=== PATIENT | female | born 1945 | race Caucasian/White ===

== ENCOUNTER 2024-08-31 07:46 | Day surgery (SDC) | payer OTHER, SELFPAY ==
[2024-08-31] VITALS (18 sets, daily range): BP systolic 120–158; BP diastolic 69–95; BMI 21.7
[2024-08-31] MEDS: NSS 186 ML IV (08:43)
--- NOTE | 2024-08-31 10:21 | ITS.CL.CATH ---
Vice President And Portfolio Manager - Catheterization
Cardiac Catheterization
Procedure Report:
CARDIAC CATHETERIZATION REPORT
Date of Procedure: 08/31/2024
Referring: Matthias Walker M.D.
Indication: Severe aortic valve stenosis, NYHA class II.
PROCEDURE:
1. Right heart catheterization.
2. Coronary angiography.
A total of 8 minutes of procedural/moderate sedation was utilized. An independent certified medical biller was present to assist with and help manage the patient's level of consciousness and physiologic status.
ACCESS:
1. 6 Hong Konger right radial artery delete using a modified Seldinger technique.
2. 5 Hong Konger right antecubital vein using a previously placed IV.
CATHETERS:
1. 5 [place]er balloon with.
2. 5 [place]er JR4.
3. 5 [place] Konger JL 3.5.
HEMODYNAMIC DATA
Weight (kg): 61.7
AO (s/d/x, mmHg): 120/80/93
LV (s/x, mmHg): Not obtained.
PCWP (a/v/x, mmHg): 01/08/
PA (s/d/x, mmHg): 17/02/
RV (s/x, mmHg): 20/6
RA (a/v/x, mmHg): 8//
SVC SvO2 (%): 69.8
IVC SvO2 (%): Not obtained.
RA SvO2 (%): Not obtained.
RV SvO2 (%): Not obtained.
PA SvO2 (%): 69.9
SaO2 (%): 95.0
Hbg (g/dL): 12.3
DEYA
CO (L/min): 3.55
CI (L/min/m2): 2.09
Thermodilution
CO (L/min): Not performed.
CI (L/min/m2): Not performed.
TPG (mmHg): 4
PVR (Zavala Units): 1.13
SVR (dynes*seconds*cm^-5): 1960
AVO2 Diff (Volume %): 4.20
AV gradient (x, mmHg): Not obtained.
AV area (cm2): Not obtained.
MV gradient (x, mmHg): Not obtained.
MV area (cm2): Not obtained.
LEFT VENTRICULOGRAPHY: Not performed.
AORTOGRAPHY: Not performed.
CORONARY ANGIOGRAPHY
Dominance: Right.
Left Main: Normal size, bifurcating vessel. There is no coronary artery disease.
LAD: Normal size vessel giving rise to 2 diagonals. The first diagonal is a small, 1.5 mm vessel. The second diagonal is a large vessel supplying the majority of the distal anterolateral wall. There are minor luminal irregularities in the mid
LAD immediately after the origin of D2.
Ramus: Congenitally absent.
Circumflex: Normal size, nondominant vessel that is essentially a single obtuse marginal supplying the lateral/anterolateral wall. There are minor luminal irregularities.
RCA: Large size, dominant vessel with a large posterolateral arcade that supplies the entire inferior inferior lateral and much of the lateral wall. There are minor luminal irregularities.
INTERVENTIONS
None.
Closure Device: Vascular band for the right radial artery, manual pressure for the right antecubital vein.
Radiation dose (mGy): 200
DAP (cm2.Gy): 10.1
Fluoroscopy time (minutes): 2.6
CONCLUSIONS:
1. Right dominant circulation with no occlusive coronary artery disease.
2. Normal filling pressures (PCWP = 9 mmHg at 61.7 kg).
3. Severe aortic valve stenosis by echocardiography.
RECOMMENDATIONS:
1. Expectant management after cardiac catheterization via right radial/antecubital approach.
2. Limited weight bearing on the right wrist for one week.
3. Continue AVR workup. CTA ordered and pending.
4. Filling pressures are normal. No role for aggressive diuresis.
5. Continue aggressive primary prevention with statin. The presence of luminal irregularities does imply atherosclerosis. Goal LDL <55.
Copy to: Matthias Walker M.D., Felipe Goldberg D.O.
Doug Bach DO, FACC, FACP
[2024-08-31] MEDS: TYLENOL 650 MG PO (10:51)
== END 2024-08-31 13:50 | disposition home or self-care (01) ==
LOC: CATH 07:46
PROVIDERS: ATTENDING PHYSICIAN Internal Medicine Cardiovascular Disease; FAMILY PHYSICIAN Family Medicine; OTHER PHYSICIAN Internal Medicine Interventional Cardiology
DX: I35.0 Nonrheumatic aortic (valve) stenosis (principal); E78.5 Hyperlipidemia, unspecified; Z79.82 Long term (current) use of aspirin; E03.9 Hypothyroidism, unspecified
CPT/HCPCS: 93456; C1894; Q9967

== ENCOUNTER → 2024-09-10 09:34 | Outpatient (REF) | payer OTHER, SELFPAY | LOC: RAD 09:34 | PROVIDERS: ATTENDING PHYSICIAN Nurse Practitioner Acute Care; FAMILY PHYSICIAN Family Medicine | DX: I35.0 Nonrheumatic aortic (valve) stenosis (principal) | CPT/HCPCS: 74174; 75572; Q9967 ==

== ENCOUNTER 2024-10-29 05:28 | Inpatient (IN) | payer OTHER, SELFPAY ==
--- NOTE | 2024-10-20 16:14 | HPS.HSE ---
Family Physician
-
Family Physician: Felipe Goldberg
Chief Complaint
-
Fatigue
PreTAVR evaluation
History of Present Illness
Ms. Hardy is a very pleasant 78 yof with a past medical history significant for , HT, HLD, and renal carcer, Echocardiogram from02/12/2024 is notable for EF 65%, AV MG 50, CHEPE 0.65, pk kori. 4.35, mild MAC, mild MR, mild-moderate TR, PAP 26. Cardiac
catheterization from 08/31/2024 demonstrated no occlusive disease. From a symptomatology standpoint, patient states she has mild fatigue and denies SOB. Discussed the pathophysiology and treatment options of including SAVR and TAVR. Reviewed the
need for dental clearance and prophylactic antibiotic before any dental procedure after AVR. Patient was reviewed with the heart team on 09/18/2024 and the agreed to proceed with TAVR utilizing a 26mm S3 via right transfemoral access.
Assessed patient in preadmission testing and confirmed medication list., Ms. Hardy will continue aspirin including the morning of her TAVR. She will arrive to the [facility] at 0530. Reviewed the risk of the procedure as discussed in consult with
Dr. Gregory including PPM, stroke, and vascular injury. Allowed for and answered questions to the best of my ability.
Medical History
Past Medical History
Past Medical History: Reports Cancer (bladder, thyroid, breast), Hypothyroidism, Valvular Disease (aortic stenosis) and Other (Retinal tear, hyperlipidemia, migraine, single kidney, brain bleed, neuropathy)
Past Surgical History: Reports Appendectomy, Cholecystectomy, Gynocological (hysterectomy, lumpectomy), Orthopedic ((R) hip replacement) and Other (nephrectomy, Surgery for brain bleed)
Social History
Tobacco: Former Smoker
Alcohol: Occasional
Drug: None
Personal:
Living: With Family
Employment: Retired
Family History
Family History: Cancer and Hypertension
Allergies / Home Medications
Allergies reflects when Allergies were last updated in [employer].
Oxycodone, sulfa
Home Medications with original date entered in [employer]
ALPRAZolam 0.25 MG Tablet 1 tablet Orally as needed at bedtime
amLODIPine Besylate 2.5 MG Tablet TAKE 1 TABLET (5 MG TOTAL) BY MOUTH DAILY.
Anastrozole 1 MG Tablet 1 tablet Orally Once a day
Aspirin 81(Aspirin) 81 MG Tablet Delayed Release 1 tablet Orally Once a day
Atorvastatin Calcium 20 MG Tablet 1 tablet Oral 3 times a week
Calcium 600 MG Tablet 1 tablet with meals Orally Twice a day
Gabapentin 300 MG Capsule 1 capsule Orally Once a day
Levoxyl(Levothyroxine Sodium) 75 MCG Tablet TAKE 1 TABLET BY MOUTH EVERY MORNING ON AN EMPTY STOMAH Oral
Ondansetron HCl 4 MG Tablet 1 tablet Orally Once a day
Allergy/Medication List:
Oxycodone, sulfa
Review of Systems
-
A 12 point ROS was completed and negative except as noted: Yes
Constitutional: Reports Fatigue
Respiratory: Reports Other (CHOWDHURY)
Physical Exam
Physical Exam
General: Well Developed, Well Nourished and No Apparent Distress
HEENT: NormoCephalic
Respiratory: Clear
Cardiac: Murmur (III/ KAMRAN)
Breast: Deferred by me
GI: Soft, Non Tender and Non Distended
Rectal: Deferred by Provider
Genito-urinary: Deferred by me
Skin: Warm
Neuro: Awake, Alert and Oriented
Psych: Calm
Data Reviewed
-
CT Scan: Report Reviewed by me and Discussed with Physician (reviewed CT scan with the TAVR team)
Medical Tests (Nuc Med, Echo, EKG etc): Report Reviewed by me and Discussed with Physician (reviewed echocardiogram and cardiac catheterization with the heart team)
Lab Data: Labs Reviewed by me
Old Records: Reviewed
Impression/Plan
-
IMPRESSION/PLAN:
Aortic stenosis--TF TAVR utilizing a 26 mm S3 via right transfemoral access planned for 10/29/2024 with Gerardo Bach and Bri
Continue Aspirin
POD#1/#30 echocardiogram
Cardiac rehab consult.
Labs
-
Labs:
WBC 5.0 10^3/uL (4.8-10.8) 10/21/24 12:08
RBC 3.94 10^6/uL (4.20-5.40) L 10/21/24 12:08
Hgb 12.3 g/dL (12.0-16.0) 10/21/24 12:08
Hct 36.3 % (37.0-47.0) L 10/21/24 12:08
Plt Count 198 10^3/uL (130-400) 10/21/24 12:08
Sodium 135 mmol/L (135-145) 10/21/24 12:08
Potassium 4.3 mmol/L (3.5-5.1) 10/21/24 12:08
Chloride 102 mmol/L (98-107) 10/21/24 12:08
Carbon Dioxide 29 mmol/L (22-30) 10/21/24 12:08
BUN 15 mg/dl (7-17) 10/21/24 12:08
Creatinine 1.1 mg/dL (0.6-1.0) H 10/21/24 12:08
eGFR 51.43 10/21/24 12:08
Glucose 92 mg/dl (70-99) 10/21/24 12:08
Calcium 10.1 mg/dl (8.4-10.2) 10/21/24 12:08
Dfy-C-Iragjqywiig Pept 508 pg/ml 10/21/24 12:08
Albumin 4.4 g/dl (3.5-5.0) 10/21/24 12:08
[2024-10-21 12:16] VITALS: BMI 22.1
[2024-10-21 12:27] LABS: Hematocrit 36.3 % (37.0-47.0); Hemoglobin 12.3 g/dL (12.0-16.0); Mean Corp Hgb Conc. 33.9 g/dL (33.0-37.0); Mean Corpuscular Volume 92.1 fL (81.0-99.0); Nucleated Red Blood Cells % 0 %; Platelet Count 198 10^3/uL (130-400); Red Cell Dist. Width 14.1 % (11.5-14.5)
[2024-10-21 12:39] LABS: INR 0.94; PT 13.1 Sec (11.4-14.6)
[2024-10-21 13:04] LABS: ALT (SGPT) 12 U/L (0-35); AST (SGOT) 20 U/L (14-36); Albumin 4.4 g/dl (3.5-5.0); Alkaline Phosphatase 60 U/L (38-126); Blood Urea Nitrogen 15 mg/dl (7-17); Calcium 10.1 mg/dl (8.4-10.2); Carbon Dioxide 29 mmol/L (22-30); Chloride 102 mmol/L (98-107); Estimated Creatinine Clearance 42 ml/min; Glucose 92 mg/dl (70-99); Potassium 4.3 mmol/L (3.5-5.1); Sodium 135 mmol/L (135-145); Total Protein 6.8 g/dl (6.3-8.2); eGFR 51.43
--- NOTE | 2024-10-21 13:49 | CM ---
CM following for DC planning needs.
Met w/ patient during PATs for planned TAVR, 10/29.
Pt. reports that she resides in a private, 2 STH w/ spouse. They have 1st floor set up.
Pt. is functionally indep. at baseline w/ ADLs, mobility without the use of any assisted device.
Pt. has RX plan and uses [facility] on [address] [facility] in [place] for prescription needs.
Reviewed pre and post op routines.
Soap, shower instructions and TAVR booklet provided.
Discussed post op MD appointments, Cardiac Rehab and visit from CT Transitional Care RN.
Reviewed post op restrictions to include lifting, driving restrictions.
Plan is for TAVR, 10/29.
Antic. DC plan is for home w/ CT Transitional Care RN. CM to follow.
[2024-10-21 14:15] LABS: Glycohemoglobin (HgbA1c) 4.9 % (4.0-5.6)
[2024-10-29] VITALS (18 sets, daily range): BP systolic 125–190; BP diastolic 65–116; BMI 21.3
--- NOTE | 2024-10-29 06:23 | PTCARENOTE ---
Pt arrived for TAVR @ 05:15. AAOx3. Vital signs captured. Height and weight recorded. Cardiac strip recorded. Groins clipped. CHG wipes completed. Pt verified showering with CHG soap x2. IV placed in right AC. Type and screen completed. Med req
completed and updated. Assessment completed. Pt verifies taking 81mg Aspirin @ home. Discussed plan of care with pt. Call garsia within reach.
Antibiotic pulled to go with pt. CVOR SBAR/Handoff completed.
--- NOTE | 2024-10-29 06:27 | W.CVOR.SURPR ---
CVOR Surgeon Immed Pre Op
-
I have examined this patient prior to performance of the scheduled procedure.
The patient's condition is unchanged from the time of the dictated/written History and
Physical and the patient is able to undergo the scheduled procedure.
TF TAVR
Full Rescue
[2024-10-29] MEDS: ANCEF 10 IV (07:29)
[2024-10-29 08:23] LABS: ACT-LR - POC 294 Seconds (116-155)
--- NOTE | 2024-10-29 08:31 | ITS.CL.TAVR ---
Clay Modeler - TAVR Report
TAVR PRocedure
Procedure Report:
TRANSCATHETER AORTIC VALVE REPLACEMENT REPORT
Date: 10/29/2024
Referring physician: Matthias Walker M.D.
Preop diagnosis: Severe aortic valve stenosis.
Postop diagnosis: Severe aortic valve stenosis.
Procedure: Transcatheter aortic valve replacement (TAVR) using a #26 Kay MELISSA S3 Ultra Resilia THV.
Operators: Doug Bach DO, Reece Gregory M.D.
Findings: Severely calcified and stenotic aortic valve.
Anesthesia: Conscious sedation was provided by the anesthesia staff.
Estimated blood loss: Negligible.
Complications: None.
Condition: Stable
Procedure:
The patient was brought to the cardiac laborer drying department after consent and was prepped and draped in standard sterile fashion. Conscious sedation was provided by the anesthesia staff. After a 'Time Out,' bilateral common femoral arteries and the left
common vein were access using a modified Seldinger technique with a micropuncture kit under ultrasound guidance. A 6 Ghanaian sheath was placed in the left femoral vein. Angiography performed through the micropuncture sheath confirmed satisfactory
arterial placement in the left common femoral artery. The micropuncture sheath was replaced with a 6Fr sheath in the left DRUM PLATER. Angiography through the micropuncture kit confirmed satisfactory arterial placement in the right common femoral artery.
The right DRUM PLATER was dilated with an 8FR dilator and preclosed with two Perc-Close devices. An 8Fr sheath was placed in the RCFA. A temporary pacing wire was advanced through the left femoral vein and into the right ventricle. The pacemaker
demonstrated good capture and was set to back up. A 5Fr pigtail catheter was advanced through the left femoral sheath and seated in the right coronary cusp. Angiography confirmed co-planar angles.
An AL-1 catheter was advanced through the 8Fr sheath, the J wire was exchanged for an Amplatz Extra-Stiff wire and the catheter and the 8 Fr sheath was removed. The 14 Fr Kay E-Sheath was inserted over the wire and into the descending aorta.
Heparin 5000 units was given. The MELISSA S3 was prepared on the back table. Orientation was confirmed by both physicians. The AL-1 catheter was re-advanced through the E-sheath to the level of the ascending aorta. The Extra-Stiff wire was
removed and a soft tip straight wire was advanced through the AL-1. The straight tip wire was used to cross the aortic valve and the catheter was advanced into the left ventricle. The straight wire was removed. Left ventricular pressure was
measured. An Amplatz Extra-Stiff wire with curved proximal end was advanced through the catheter and into the left ventricular apex. The catheter was removed. ACT was checked and confirmed to be > 250 seconds.
The valve was advanced over the Extrastiff wire and into the descending aorta. The balloon was pulled back and the valve was mounted on the balloon. The valve was advanced through the aortic arch and into the aortic valve annulus. The pusher
device was withdrawn to allow for balloon expansion. Low volume aortography confirmed good position of the valve. The valve was deployed during rapid ventricular pacing. Echocardiography and aortography confirmed a good result with trace/mild
aortic valve insufficiency and a 7 mmHg mean gradient. The valve deployment system was removed. The Kay E-Sheath was then removed and hemostasis obtained with the two Perc-Close sutures. Final angiography demonstrated no evidence of ileofemoral
dissection/perforation and good runoff below the common femoral artery. The pacemaker and the pigtail catheter were removed. The left femoral artery sheath was removed using a 6 [place]ian Angio-Seal. The left femoral venous sheath was removed and
manual pressure was applied with excellent hemostasis. Protamine 30 mg was administered.
Radiation
Dose (mGy): 167
DAP (cm2.Gy): 15.2
Fluoroscopy time (minutes): 10.2
TAVR Echo Gradient (mmHg): 7
LV (s/x, mmHg): 164/15
TAVR Cath Gradient (mmHg): Not obtained.
Conclusions:
1. Successful placement of # #26 Melissa S3 Ultra aortic valve via right transfemoral approach with no acute complications.
2. Mildly elevated filling pressures (LVEDP = 15 at 64.8 kg).
Doug Bach, DO, FACC, FACP
Copy to: Matthias Walker M.D., Felipe Goldberg D.O.
--- NOTE | 2024-10-29 08:31 | W.PN.CT.SURG ---
CT Surgery Operative Note
-
OPERATIVE REPORT
Preoperative Diagnosis: Severe aortic valve stenosis, symptomatic
Postoperative Diagnosis: Same
Procedure(s) Performed: Right trans femoral TAVR with a 26mm + 1cc Olivas TAVR valve
Date of Procedure: 10/29/24
Comorbidities:
1. Severe aortic stenosis, symptomatic
2. Retinal Tear
3. Bladder CA
4. HTN
5. HLD
6. Breast Cancer
7. Neuropathy
Cardiac Surgeon: Reece Gregory MD, MS
Cable Testers Helper: Doug Bach MD
Anesthesia: Conscious Sedation and Local Analgesia
EBL: 100cc
Products: none
Implant: 26mm + 1cc OLIVAS Melissa Resilia TAVR Valve, SN: [id number]
Indication(s) for Procedures: 78-year-old female with symptomatic severe aortic stenosis. CT-TAVR protocol revealed acceptable anatomy for TAVR access and implantation.
Start time: 0746hrs
Deployment time: 0813hrs
End time: 0824hrs
Radiation Dose (mGy): 167
DAP (cm2.Gy): 15.2
Fluoroscopy time (minutes): 10.2
Contrast volume (ml): 92
TAVR gradient (mmHg): 7mmHg
Heparin Dose: units
Protamine Dose: 30mg
Final Valve Positionin/20
Findings: Preoperative LVEF was 60% and was 60% following TAVR without inotropic support. Function was overall normal without regional wall motion abnormalities or dyskinesia. The aortic valve was well seated with only trace detectable PVL and mean
gradient across the new valve was 7 mmHg. after deployment, there is no further requirement of pacing and returned to sinus while on the oven laborer table. There was successful placement of 26 mm +1 cc TAVR valve without acute complications.
Access:
1. Device -right common femoral artery, perclose x 2
2. Pigtail -left common femoral artery [+ 6Fr angioseal]
3. Transvenous Pacer -left common femoral vein
Description of Procedure: The patient was taken to the oven laborer. Their identity and procedure to be performed were verified and they were positioned supine on the oven laborer table. Induction via conscious sedation. The patient was then prepped and
draped from chin to thigh in a sterile fashion. A preoperative time-out was performed with all members of the team present. Arterial and venous access was performed using fluoroscopy and ultrasound guidance with micropuncture and Seldinger
technique. Two perclose devices were used on the device side followed by access to the aorta with a stiff wire to facilitate E-sheath placement. Heparin was given. A stiff straight wire and AL-1 catheter was used to cross the aortic valve. The stiff
wire was exchanged for an extra stiff coiled tip wire. The valve was prepped and mounted on to the device carrier. An ACT of >250 was achieved. We verified x 3 that the valve was mounted in the correct orientation with the skirt of the valve
directed toward the tip of the device carrier. We advanced the device into the descending thoracic aorta where the valve was them mounted onto the balloon under fluoroscopy. The device was flexed and advanced over the arch into the root and
positioned across the aortic valve. Contrast fluoroscopy was used to visualize the prosthesis across the valve and to guide positioning. A pigtail catheter in the RCC as used as a guide. We aimed to have the bottom of the device marker at the
annular hinge point. The device sheath was pulled back. We performed a quick pre-deployment time out. The pacer was turned on and had capture. Blood pressure fell accordingly, angiography was done to verify the intended final placement and the valve
was deployed with 5 seconds of rapid pacing to nominal volume. The balloon was deflated and the pacer was turned off. We had recovery of vitals. The device carrier was unflexed and positioned back in the descending thoracic aorta. A transthoracic
echocardiogram was performed. The device was removed from the E-Sheath maintaining wire access followed by removal of the E-sheath as we cinched down the perclose devices. There was acceptable hemostasis. The pigtail was withdrawn into the
descending/abdominal and completion aortogram with runoff run-off angiography was performed. There was no stenosis or dissection of bilateral iliofemoral systems. There was acceptable hemostasis of bilateral groins and manual pressure was held
following wire removal. Low dose protamine was administered after checking another ACT.
All instrument, sponge, and needle counts were confirmed to be correct x 2 at the end of the operation. The patient was transferred to the cardiac intensive care unit in stable condition.
I, Dr. Reece Gregory, was present, scrubbed for, and performed all critical elements of this procedure.
Reece Gregory MD
Cardiothoracic Surgeon
[facility]
This operative dictation was created using the [employer] dictation system. Please excuse any grammatical, typographical, or 'sound alike' errors
[2024-10-29] MEDS: OFIRMEV 100 IV (09:31)
[2024-10-29] MEDS: ANCEF IV (10:32)
[2024-10-29] MEDS: SYNTHROID PO (10:33)
--- NOTE | 2024-10-29 10:54 | CM ---
Chart reviewed. Patient is in the OR today. Patient is independent of ADLS, lives with her in a 2 STH, 1st floor set up, 0 DME. Plan is for the patient to return home with CT Transitional RN. CM to follow
--- NOTE | 2024-10-29 12:18 | PTCARENOTE ---
Pt received from recovery area post TAVR. Telemetry shows sinus wei at a rate of 42-50's. Bilateral femoral groin sites with dry and intact dressings, no sign of bleeding or hematoma. Pt denies any discomfort but does report intermittent 'auras'
treated in recovery area with offirmev. Pt is in a darkened room , as quiet as possible, STEFAN Galdamez aware. Other neuro assessment is at pt's baseline.
[2024-10-29] MEDS: ARIMIDEX PO (15:41)
[2024-10-29] MEDS: ANCEF 5 IV (15:41)
[2024-10-29] MEDS: VITAMIN D3 (cholecalciferol) PO (15:41)
--- NOTE | 2024-10-29 16:19 | W.DCSUMMARY ---
Discharge Summary
Discharge Data
Date of Admission: 10/29/24
Date of Discharge: 10/30/24
-
Pending Results: No
Hospital Course
Primary care physician: Dr. Felipe Goldberg
Outpatient caustic plant worker: Dr. Matthias Walker
Inpatient consultants: [facility]
Procedures:
1. Transfemoral Transcatheter Aortic Valve Replacement (26 mm Kay Melissa Resilia)
Primary Diagnosis:
1. Severe, symptomatic, aortic stenosis
Secondary Diagnoses:
1. HLD
2. HTN
3. Retinal Tear
4. Breast Ca
5. Neuropathy
HPI: Ms. Vibha Hardy is a 78-year-old female with who underwent extensive outpatient diagnostic imaging and consideration with the structural heart team at [facility] for intervention of her aortic valve due to her severe, symptomatic aortic stenosis. She
was determined to be suitable for an elective TAVR in which she was admitted on 10/29/24 for a planned transfemoral TAVR via R femoral artery with Dr. Doug Bach and Dr. Reece Gregory with successful placement of an Kay Melissa Resilia (#26 mm)
valve. She was ultimately discharged on postoperative day 1 following a repeat TTE which showed an EF of 55 to 60%, aortic valve with a peak and mean gradient of 11 and 6 respectively with no paravalvular leak. She had an estimated PA systolic
pressure of 22 and right atrial pressure of 3. She will follow-up with her primary caustic plant worker and obtain a TTE in 30 days following her TAVR.
Hospital course: Ms. Vibha Hardy is a 78-year-old female with who underwent extensive outpatient diagnostic imaging and consideration with the structural heart team at [facility] for intervention of her aortic valve due to her severe, symptomatic aortic
stenosis. She was determined to be suitable for an elective TAVR in which she was admitted on 10/29/24 for a planned transfemoral TAVR via R femoral artery with Dr. Doug Bach and Dr. Reece Gregory with successful placement of an Kay Melissa
Resilia (#26 mm) valve. Please see interventional list and surgeon's postoperative notes for complete details of procedure. Intraoperatively, there were no significant events and the patient went directly to the Sales Architect recovery. Bilateral groin
sites remained stable and she was transferred to the interventional unit for the remainder of her recovery. Her initial limited TTE IntraOp showed an EF of 60%, trace paravalvular leak, and an aortic valve mean gradient of 7. Her postoperative EKG
showed sinus bradycardia in the 50s and hemodynamic stability. Postoperatively, she reported a migraine with aura in which resolved after receiving 1 g of IV acetaminophen and sensory deprivation. On postoperative day 1, her home medication
regiment was resumed and she was initiated on aspirin 81 mg in which she will continue indefinitely status post TAVR. She was at her preoperative weight of 61.7 kg. Her chest x-ray did not show any abnormality. Her EKG showed a normal sinus
rhythm. Ms. Hardy was tolerating ambulation and a regular diet. Her repeat transthoracic echocardiogram showed an EF of 55 to 60%, aortic valve with a peak and mean gradient of 11 and 6 respectively with no paravalvular leak. She had an estimated
PA systolic pressure of 22 and right atrial pressure of 3. She was discharged home with plans to be followed by the transitional care nursing team and follow-up appointments with her primary caustic plant worker. She was referred to have a repeat TTE in
30 days following her TAVR procedure which will be coordinated with her primary outpatient caustic plant worker.
Home medication changes:
- None
Discharge Plan
-
Patient Disposition: Home (Routine Discharge)
Discharge Diagnosis/Procedures: Right Transfemoral TAVR (10/29/24)
Condition: Good
Diet: Low Fat, Low Cholesterol and 2 Gram Sodium
Activity: As tolerated
Driving Restrictions: No driving for 1 week
Bathing Restrictions: OK to Shower
Others Tests: 30-day follow up echocardiogram: 12/02/2024 @ 12:40 at the [facility] office
You will need antibiotic prophylaxis prior to all dental procedures.
Other Services: Cardiac Rehab
Wound Care: No lotions, powders, or creams to puncture sites
Specialty Instructions: Weigh Daily- Call MD for wt gain/loss 3 lbs overnight/5 lbs in 1 week
Stand Alone Forms: DC Inst - TransFemoral (TAVR)
Referrals:
CT Transitional Care Nurse [Outside]
Referral Note: The Cardiothoracic Transitional Care Nurse will call you to set up a visit in 1-2 days.
Kelsey Flor CRNP [Specified Professional Personl, Cardiology] - 12/08/24 11:40 am
Felipe Goldberg DO [Family Provider, Family Practice]
Prescriptions:
New
acetaminophen 325 mg Tablet
650 mg PO Q6HPRN PRN (Reason: BRISENO, mild pain, or fever >101F) Qty: 0 0RF
Continued
alprazolam 0.25 mg Tablet
0.25 mg PO HS PRN (Reason: anxiety)
gabapentin 300 mg Capsule
300 mg PO HS PRN (Reason: As needed for neuropathy)
anastrozole 1 mg Tablet
1 mg PO DAILY Qty: 0 0RF
atorvastatin 20 mg Tablet
20 mg PO MOWEFR Qty: 0 0RF
calcium carbonate [Calcium 600] 600 mg calcium (1,500 mg) Tablet
600 mg PO DAILY Qty: 0 0RF
aspirin 81 mg Tablet
81 mg PO DAILY Qty: 0 0RF
levothyroxine [Levoxyl] 75 mcg Tablet
75 mcg PO DAILY Qty: 0 0RF
cholecalciferol (vitamin D3) [Vitamin D3] 50 mcg (2,000 unit) Tablet
50 mcg PO BID Qty: 0 0RF
amlodipine 2.5 mg Tablet
2.5 mg PO DAILY Qty: 0 0RF
Discharge Orders:
Discharge Patient (As Directed); Ordered 10/30/24
Ordered By: Nasreen Livingston
Care Plan Goals
Care Plan Goals:
Problem: Readiness for enhanced knowledge related to diagnosis and treatment plan
Goal: Understand your diagnosis and treatment plan needs, including medications if applicable.
Instructions: Know your diagnosis, underlying causes and treatment plan options, including medications if applicable. Consult with your health care team to learn about your diagnosis and treatment plan, including medications if applicable.
Discharge Date and Time
Print Language: WELSH
[2024-10-29] MEDS: VITAMIN D3 (cholecalciferol) 50 MCG PO (21:12)
[2024-10-29] MEDS: NEURONTIN 300 MG PO (22:11)
[2024-10-29] MEDS: XANAX 0.25 MG PO (22:11)
--- NOTE | 2024-10-29 23:47 | PTCARENOTE ---
Assumed care of the pt @ 1900. Pt is AAOx3 denies h/a at this time SR on the monitor VSS. Rt fem groin site with sm amt bloody drainage left groin c/d/i. Pt requested Xanax for sleep. Call garsia within reach
--- NOTE | 2024-10-30 02:05 | W.PN.CT ---
Today's Communication / Plan
-
pod #1
- no conduction issues overnight
- check CXR, TTE, ECG
- if stable, plan for DC today on home medication regimen with aspirin monotherapy for anticoagulation
Assessment / Plan
-
Nonrheumatic severe aortic stenosis s/p Right trans femoral TAVR #26mm + 1cc Kay by Drs. Reece Gregory and Doug Bach (10/29/24)-pod #1
MELISSA: EF 60%, trace PVL, AV mean gradient 7mmHg
1. Retinal Tear-right eye
2. renal and Bladder CA s/p right nephroureterectomy (2011)
3. HTN
4. HLD
5. Breast Cancer s/p lumpectomy 2023
7. Neuropathy
8. Hypothyroidism
9. Brain bleed S/P surgery (04/2024)
10. migraine cephalgia
Discussed patient care with: Cardiology, Nursing and Respiratory Therapy
Subjective
Procedure
Migraine earlier in the evening
-
Date of Service: October 30, 2024
Objective Data
-
PT 13.1 Sec (11.4-14.6) 10/21/24 12:08
INR 0.94 10/21/24 12:08
Vital Signs
Vital Signs
Temp Pulse Resp BP Pulse Ox
98.9 F 72 15 156/74 98
10/29/24 22:12 10/29/24 22:12 10/29/24 22:12 10/29/24 15:30 10/29/24 22:12
CT Intake/Output/Weight
10/29/24 10/29/24 10/30/24
06:59 18:59 06:59
Intake Total 1160 / 1160
Output Total 2275 / 2275
Balance -1115 / -1115
SaO2: 98
Physical Exam
-
General: AOx3
Cardiovascular: Regular rate & rhythm
Respiratory: Clear
Extremities: No Edema and Other (B/L groin sites without bleeding/hematoma)
Data Reviewed
-
Lab Results: Results Reviewed
Medications: Active Meds Reviewed
Chest X-Ray: Report Reviewed and Image Reviewed
ECG: Report Reviewed and Image Reviewed
[2024-10-30 03:34] VITALS: BP 132/98
[2024-10-30 04:00] VITALS: BMI 21.0
[2024-10-30 04:27] LABS: Hematocrit 35.4 % (37.0-47.0); Hemoglobin 12.1 g/dL (12.0-16.0); Mean Corp Hgb Conc. 34.2 g/dL (33.0-37.0); Mean Corpuscular Volume 91.9 fL (81.0-99.0); Platelet Count 174 10^3/uL (130-400); Red Cell Dist. Width 14.0 % (11.5-14.5)
[2024-10-30] MEDS: SYNTHROID 75 MCG PO (04:53)
[2024-10-30 04:55] LABS: Blood Urea Nitrogen 15 mg/dl (7-17); Calcium 9.4 mg/dl (8.4-10.2); Carbon Dioxide 25 mmol/L (22-30); Chloride 103 mmol/L (98-107); Estimated Creatinine Clearance 45 ml/min; Glucose 91 mg/dl (70-99); Potassium 3.6 mmol/L (3.5-5.1); Sodium 136 mmol/L (135-145); eGFR 57.66
[2024-10-30 05:48] LABS: Hepatitis C Antibody Negative (Negative)
[2024-10-30] MEDS: KCL 40 MEQ PO (06:37)
--- NOTE | 2024-10-30 07:04 | W.PN.CD ---
Today's Communication / Plan
-
Echocardiogram pending.
Resume home medications.
Likely discharge.
Impression / Plan
-
Impression/Plan: 78 y/o female with HTN, HLD and severe admitted for elective TAVR.
#Severe
-Chronic, progressive.
-S/P #26 Kay MELISSA S3 Ultra Resilia TAVR via right transfemoral access without immediate complication.
-Telemetry benign.
-Access sites are C/D/I.
-Antithrombotic therapy with aspirin.
-Echocardiogram pending.
#HTN
-Chronic, hypertensive over the past 24 hours.
-Restart home amlodipine.
#HLD
-Chronic, stable.
-Restart home atorvastatin.
#Dispo
-IVU status.
-Full code.
-Discharge pending echo results.
Subjective/Interval History:
TAVR yesterday.
Feels well.
Hypertensive over the past 24 hours.
DATA:
TAVR, 10/29/2024:
Conclusions:
1. Successful placement of # #26 Melissa S3 Ultra aortic valve via right transfemoral approach with no acute complications.
2. Mildly elevated filling pressures (LVEDP = 15 at 64.8 kg).
Physical Exam
Vital Signs/Labs
Vital Signs
Temp Pulse Resp BP Pulse Ox
37.6 C 77 16 132/98 98
10/30/24 03:43 10/30/24 03:43 10/30/24 03:43 10/30/24 03:34 10/30/24 03:43
10/28/24 10/29/24 10/30/24
11:59 11:59 11:59
Actual Weight 62.5 kg 61.7 kg
10/30/24 03:53
10/30/24 03:53
PT 13.1 Sec (11.4-14.6) 10/21/24 12:08
INR 0.94 10/21/24 12:08
10/21/24
12:08
Nhh-R-Ozxjihxrcat Pept 508
Physical Exam
Constitutional: No acute distress and Comfortable
EENT: Anicteric and Moist mucous membranes
Cardiovascular: Rhythm & rate is regular, Pedal edema is absent, JVD pressure is normal, S1S2 is normal and Murmur/rub/gallop absent
Respiratory: Respiratory effort normal, Lungs clear to auscul., Wheeze Absent, Crackles Absent and Rhonchi Absent
GI: Soft, Distention absent, Flat, Non tender and Normal bowel sounds
Neuro/Psych: AO x 3
Other: Cath Site (Bilateral femoral access sites are C/D/I.)
Data Reviewed
-
Date of Service: October 30, 2024
Medical Decision Making: Reviewed Test Results, Independent Historian Assessment and Test Interpretation
EKG: Tracing Personally Visualized and interpreted and Report Reviewed by me
Echo: Tracing Personally Visualized and interpreted and Report Reviewed by me
X-Ray/CT/US/MRI/NUC/PET: Image Personally Visualized and interpreted and Report Reviewed by me
Medical Tests (PFT, Pathology etc): Image Personally Visualized and interpreted and Report Reviewed by me
Labs: Labs Reviewed by me
Old Records: Reviewed
--- NOTE | 2024-10-30 07:07 | W.PN.ANS.POP ---
Anesthesia Post Operative
- Anesthesia Post Op Note
Vital Signs Stable-See Nursing Note: Yes
Airway Patent: Yes
Adequate Pain Control: Yes
Change in Mental Status: No
Current Postoperative Nausea & Vomiting: No
Anesthesia Complications: No
General Anesthetic Recall: No
Unplanned Admission: No
Post Op Hydration Adequate: Yes
- -
Pt awake and alert, resting comfortably with no anesthesia related c/o at time of post op visit.
[2024-10-30 07:15] VITALS: BP 110/93
[2024-10-30] MEDS: OSCAL CAL 500 500 MG PO (09:15)
[2024-10-30] MEDS: VITAMIN D3 (cholecalciferol) 50 MCG PO (09:15)
[2024-10-30] MEDS: ASPIR LOW (ENTERIC COATED) 81 MG PO (09:15)
[2024-10-30] MEDS: ARIMIDEX 1 MG PO (09:15)
[2024-10-30] MEDS: LIPITOR 20 MG PO (09:20)
--- NOTE | 2024-10-30 10:37 | CM ---
Chart reviewed. Patient is independent of ADLS, lives with his in a 2 STH, 1st floor set up, 0 ANIRUDH, 0 DME. Plan is for the patient to return home with CT Transitional RN. CM to follow
[2024-10-30 11:54] VITALS: BP 125/69
--- NOTE | 2024-10-30 14:09 | PTCARENOTE ---
Pt up walking in halls without problem. Echo done and reviewed. Telemetry and IV device removed. Discharge instructions reviewed with pt and her regarding activity and driving restrictions, wound care, medications and their possible side
effects, reporting cares and concerns and follow up appt's. Excellent understanding verbalized. Pt escorted out via wheelchair and discharged to home.
== END 2024-10-30 13:45 | disposition home or self-care (01) | DRG 267 ==
LOC: IVU 05:28
PROVIDERS: Nurse Practitioner; ADMITTING PHYSICIAN Thoracic Surgery (Cardiothoracic Vascular Surgery); FAMILY PHYSICIAN Family Medicine; OTHER PHYSICIAN Internal Medicine Cardiovascular Disease
PROC: 02RF38Z Replacement of Aortic Valve with Zooplastic Tissue, Percutaneous Approach (ICD-10-PCS; 2024-10-29)
DX: I35.0 Nonrheumatic aortic (valve) stenosis (principal); I10 Essential (primary) hypertension; E78.5 Hyperlipidemia, unspecified; G62.9 Polyneuropathy, unspecified; E03.9 Hypothyroidism, unspecified; G43.109 Migraine with aura, not intractable, without status migrainosus; R00.1 Bradycardia, unspecified; Z87.891 Personal history of nicotine dependence; Z79.82 Long term (current) use of aspirin
CPT/HCPCS: 33361; 36415; 71045; 71046; 80048; 80053; 82248; 83036; 83880; 85025; 85027; 85347; 85610; 86803; 86850; 86900; 86901; 87070; 93005; 93308; 93321; 93325; C1760; C1769; C1894; Q9967

== ENCOUNTER 2024-11-04 09:50 | Emergency (ER) | payer OTHER, SELFPAY ==
[2024-11-04 09:55] VITALS: BP 147/91
--- NOTE | 2024-11-04 10:59 | ED.GENMED ---
History of Present Illness
General
Chief Complaint: Visual Problem
Time Seen by Provider: 11/04/24 10:44
History of Present Illness
History of Present Illness:
PAST MEDICAL HISTORY AND REVIEW OF OLD RECORDS
- The patient had to have or nearly 1 week ago for what she calls a symptomatic aortic stenosis.
Note:
CHIEF COMPLAINT(S)
Intermittent visual disturbances and complete loss of vision in the right eye.
HISTORY OF PRESENT ILLNESS
The patient is a 78-year-old female with a history of recent transfemoral aortic valve replacement who presents with episodes of visual disturbances. Approximately one week ago, she underwent a transcatheter aortic valve replacement (TAVR) at
[facility]. Upon awakening from the anesthesia, she experienced intermittent visual phenomena described as 'aura, flash-in, saravia kind of feeling' in both eyes.
Since returning home on Saturday, she has had several more episodes. Of significant concern, on Saturday, she experienced a complete loss of vision in her right eye, described as 'completely gong' with no light perception, lasting over 24 hours before
resolution. On Saturday, she was evaluated by an soil fertility specialist who confirmed her vision returned to nearly 20/20 and found no eye abnormalities.
The previous night, she experienced another visual episode while watching television, where the right eye exhibited a 'swath of gong,' but did not result in total vision loss. This morning, upon rising from bed, she experienced another transient
gong vision episode in her right eye. She described her symptoms as intermittent and similar to a gong swath in vision, with a noticeable bright spot.
The patient also has a history of a subdural hematoma discovered in April following mild headaches, requiring surgical intervention. She was previously placed on anticoagulation therapy but reports having had a spontaneous episode of vision loss
in the right eye in 2016, subsequently diagnosed as an issue with a 'mini strip' behind the eye.
PAST MEDICAL AND SURGICAL HISTORY
- Subdural hematoma in April, treated surgically.
- Transfemoral aortic valve replacement (TAVR) last .
PAST MEDICAL HISTORY
- Episode of vision loss in 2016.
- Placed on anticoagulation therapy.
EXAM
- General: Well appearing in no distress
- HEENT: Moist oral mucosa
- Cardiovascular: No murmurs, normal heart rate, regular rhythm, No chest wall tenderness
- Pulmonary: No respiratory distress, breath sounds are clear and equal
- Abdomen: Soft with no peritoneal signs, no tenderness
- Neurologic: Excellent strength all extremities, no coordination deficits, no field cuts on examination, visual acuity 20/30 to the affected eye
- Psychiatric: Appropriate mental status, normal insight and judgement
- Extremities: Nontender, no edema, moves all extremities equally
- Skin: No rash, no lesions
ADDITIONAL HISTORY OBTAINED FROM SOURCES OTHER THAN THE PATIENT
No additional sources were mentioned.
CHRONIC MEDICAL CONDITIONS SIGNIFICANTLY AFFECTING CARE
The patient has a background history significant for needing aortic valve replacement and prior subdural hematoma.
PLAN
The plan includes obtaining a CT angiogram of the brain, including IV contrast, to evaluate the cerebral and carotid vasculature. An electrocardiogram (EKG) will also be performed to assess cardiac rhythm.
DIFFERENTIAL DIAGNOSIS
The Differential Diagnosis includes, in no particular order and is not limited to:
1. Transient ischemic attack
2. Retinal artery occlusion
3. Migraine-related visual aura
4. Amaurosis fugax
5. Subdural hematoma recurrence
6. Giant cell arteritis
7. Ocular migraine
8. Retinal detachment
9. Carotid artery stenosis
10. Ischemic optic neuropathy
RADIOLOGY
- CTA head neck obtained that shows no hemodynamically significant stenosis of the carotids
EKG
- Sinus rate of 63, first-degree AV block, left bundle branch block
LABS
- CBC and chemistries relatively unremarkable
UPDATE
-SUMMARY OF ENCOUNTER
The patient, a 78-year-old female, with a history of recent transfemoral aortic valve replacement, presented with episodes of visual disturbances and complete loss of vision in the right eye. During evaluation, imaging was performed to assess the
blood vessels for any blockages. Results indicated no significant blood vessel blockages, and therefore no urgent vascular intervention was necessary. After consultation with Dr. Carlton, the on-call neurologist, the decision was made to commence dual
antiplatelet therapy with aspirin and clopidogrel (Plavix) for three weeks to address the potential of transient ischemic episodes affecting cerebral or ocular circulation. The patient has a prior history of subdural hematoma, and potential risks of
therapy were discussed, advising caution to avoid falls.
ASSESSMENT
The episodes of visual disturbance and transient vision loss could be due to transient ischemic attacks or other ischemic episodes affecting cerebral or retinal perfusion. Given the history and imaging results, embolic events affecting the retinal
or brain vasculature are considered.
PLAN
The plan is to manage with aspirin and a short course of clopidogrel (Plavix) for three weeks. The patient is advised to be cautious and avoid situations that may cause falls. A follow-up with an soil fertility specialist is suggested due to recurring
episodes, despite a recent evaluation.
MEDICATION RECONCILIATION
The patient is to continue taking aspirin daily and start clopidogrel (Plavix) as prescribed for three weeks.
MEDICAL DECISION MAKING
-Complexity of Data Reviewed: Chronic conditions affecting care include a history of subdural hematoma and recent transfemoral aortic valve replacement. Potential diagnoses considered: transient ischemic attack, retinal artery occlusion, amaurosis
fugax, ischemic optic neuropathy, and other ischemic events.
-Data:
Category [address] Discussion [address] Carlton, on-call neurologist, concluded with the recommendation to use clopidogrel (Plavix) for three weeks in conjunction with aspirin to mitigate potential ischemic events.
-Risk: Prescription medication was prescribed, specifically clopidogrel (Plavix), alongside aspirin.
DIAGNOSIS
- Transient ischemic attacks (TIA), unspecified (G45.9)
- History of subdural hematoma without current recurrence (Z87.820)
Phy Exam
Physical Exam
Physical Exam:
See HPI
Course
Orders/Labs/Results
Orders:
Orders
11/04/24 11:01
Electrocardiogram (*1) Urgent
Reason for Study: TIA/Stroke
CT Head & Neck Angio W/wo IV Urgent
Comment:
Reason For Exam: intermittent R vision loss post TAVR
EKG- Treatment ONCE
11/04/24 11:29
Basic Metabolic Panel Urgent
Complete Blood Count/With Diff Urgent
Abnormal Lab Results
11/04/24
11:29
WBC 4.5 L 10^3/uL
(4.8-10.8)
RBC 3.93 L 10^6/uL
(4.20-5.40)
Hct 36.1 L %
(37.0-47.0)
Absolute Lymphs (auto) 0.9 L 10^3/uL
(1.2-3.4)
Lymphocytes % 19.4 L %
(20.5-51.1)
Sodium 134 L mmol/L
(135-145)
BUN 21 H mg/dl
(7-17)
Calcium 10.7 H mg/dl
(8.4-10.2)
11/04/24 11:29
11/04/24 11:29
Vital Signs
Initial and Last Documented VS:
Initial Vital Signs
Temp Pulse Resp BP Pulse Ox
36.8 C 80 16 147/91 98
11/04/24 09:55 11/04/24 09:55 11/04/24 09:55 11/04/24 09:55 11/04/24 09:55
Last Documented Vital Signs
Temp Pulse Resp BP Pulse Ox
36.8 C 68 11 180/95 100
11/04/24 09:55 11/04/24 13:00 11/04/24 13:00 11/04/24 13:00 11/04/24 13:00
*Pulse Oximetry
SaO2: 98
Oxygen Mode of Delivery: Room air
Patient hypoxic: no
*Critical Care Note
Total Time (30-74mins, 75-104mins- exclusive of procedures): Not Applicable
ED Attending Note
-
Portions of this chart may have been created with voice recognition software.� Occasional wrong word or��sound alike� substitutions may have occurred due to the inherent limitations of voice recognition software.
Discharge Plan
Departure
Patient Disposition: Home (Routine Discharge)
Date of Disposition: 11/04/24
Time of Disposition: 14:24
Patient with high blood pressure during this ER visit?: Yes
Discharge Problem:
Changes in vision
Instructions: BLOOD PRESSURE
Prescriptions:
New
clopidogrel [Plavix] 75 mg tablet
75 mg PO DAILY Qty: 21 0RF
No Action
alprazolam 0.25 mg Tablet
0.25 mg PO HS PRN (Reason: anxiety)
gabapentin 300 mg Capsule
300 mg PO HS PRN (Reason: As needed for neuropathy)
anastrozole 1 mg Tablet
1 mg PO DAILY Qty: 0 0RF
atorvastatin 20 mg Tablet
20 mg PO MOWEFR Qty: 0 0RF
calcium carbonate [Calcium 600] 600 mg calcium (1,500 mg) Tablet
600 mg PO DAILY Qty: 0 0RF
aspirin 81 mg Tablet
81 mg PO DAILY Qty: 0 0RF
levothyroxine [Levoxyl] 75 mcg Tablet
75 mcg PO DAILY Qty: 0 0RF
cholecalciferol (vitamin D3) [Vitamin D3] 50 mcg (2,000 unit) Tablet
50 mcg PO BID Qty: 0 0RF
acetaminophen 325 mg Tablet
650 mg PO Q6HPRN PRN (Reason: BRISENO, mild pain, or fever >101F) Qty: 0 0RF
amlodipine 2.5 mg Tablet
2.5 mg PO DAILY Qty: 0 0RF
Referrals:
Lea Cornelius MD [Non-Admitting Privileges, Neurology]
Felipe Goldberg DO [Family Provider, Family Practice]
Activity Restrictions/Additional Instructions:
I am giving you the contact information for a local neurologist that you could possibly follow-up with as an outpatient, Dr. Cornelius. I spoke to one of the neurologist here, Dr. Carlton, he recommends that you be placed on a 3-week course of Plavix
in addition to the aspirin that you normally take. CAT scan of the brain shows no bleeding and CAT scan with IV contrast shows no significant blockage of blood vessels. I also recommend reevaluation by your soil fertility specialist, Dr. Hensley.
Interventions
Interventions:
*Risk Screen - Suicide Last Done: 11/04/24 11:28
*General Assessment Last Done: 11/04/24 11:28
*Neglect/Abuse Screening Last Done: 11/04/24 11:28
*ED COVID-19 Vaccine History Last Done: 11/04/24 11:28
Discharge Date and Time
Print Language: JORDANIAN
[2024-11-04 11:21] VITALS: BMI 21.4
[2024-11-04 11:28] VITALS: BP 176/88
[2024-11-04 11:38] LABS: Hematocrit 36.1 % (37.0-47.0); Hemoglobin 12.2 g/dL (12.0-16.0); Mean Corp Hgb Conc. 33.8 g/dL (33.0-37.0); Mean Corpuscular Volume 91.9 fL (81.0-99.0); Nucleated Red Blood Cells % 0 %; Platelet Count 170 10^3/uL (130-400); Red Cell Dist. Width 13.6 % (11.5-14.5)
[2024-11-04 11:50] LABS: Blood Urea Nitrogen 21 mg/dl (7-17); Calcium 10.7 mg/dl (8.4-10.2); Carbon Dioxide 27 mmol/L (22-30); Chloride 102 mmol/L (98-107); Estimated Creatinine Clearance 45 ml/min; Glucose 91 mg/dl (70-99); Potassium 4.0 mmol/L (3.5-5.1); Sodium 134 mmol/L (135-145); eGFR 57.66
[2024-11-04 12:00] VITALS: BP 151/87
[2024-11-04 13:00] VITALS: BP 180/95
[2024-11-04 14:39] VITALS: BP 165/92
== END 2024-11-04 14:53 | disposition home or self-care (01) ==
LOC: EMR 09:50
PROVIDERS: EMERGENCY PHYSICIAN Emergency Medicine; FAMILY PHYSICIAN Family Medicine
DX: G45.9 Transient cerebral ischemic attack, unspecified (principal); H53.9 Unspecified visual disturbance; Z95.2 Presence of prosthetic heart valve; Z86.79 Personal history of other diseases of the circulatory system
CPT/HCPCS: 99284; 70496; 70498; 80048; 85025; 93005; Q9967